=== PATIENT | female | born 1960 | race Caucasian/White ===

== ENCOUNTER 2021-05-13 22:14 | Emergency (ER) | payer MEDICAID, OTHER ==
[~2021-05-13] VITALS: Ht 165 cm; Wt 79.8 kg
--- OUTSIDE RECORDS SUMMARY | 2021-05-13 22:19 | XMS REPORT | Clinical Summary ---
Author Author [facility] Organization [facility] Address Unknown Phone Unavailable Care Team Providers Care Instrumental Music Teacher Name Role Phone Shaggy Durbin PCP Source Comments Some departments are not documenting in the electronic medical record. If you d o not see the information that you expected, contact Release of Information in [facility] Health Information Management department at [phone] for further assistan ce in locating additional records.[facility] Allergies No known active allergies Medications End Date Status Medication Sig Dispensed Refills Start Date Active benazepril (LOTENSIN) 20 Take 40 mg by 0 mg tablet mouth daily. Active celecoxib (CELEBREX) 200 Take 200 mg 0 mg capsule by mouth daily. Active citalopram (CELEXA) 40 mg Take 40 mg by 0 tablet mouth daily. Active alendronate (FOSAMAX) 70 Take 70 mg by 0 mg tablet mouth every 7 days. Take at least 30 minutes before breakfast with plain water. Do not lie down for 30 minutes. Active hydroCHLOROthiazide Take 25 mg by 0 (HYDRODIURIL) 50 mg mouth every tablet morning. Active potassium chloride(+) Take 10 mEq 0 (MICRO-K) 10 mEq capsule by mouth as Needed. Take with a meal and a full glass of water. Active ALPRAZolam (XANAX) 0.5 mg Take 0.5 mg 0 tablet by mouth at bedtime daily. Active acetaminophen (TYLENOL) Take 2 Tabs 0 325 mg tablet by mouth 6 every 4 hours as needed for Pain. Active ondansetron hcl (ZOFRAN) Take 1 Tab by 20 Tab 1 4 mg tablet mouth every 6 6 hours as needed for Nausea or Vomiting. 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 MRI Head (04/04/2016): Minimal bilatera l subarachnoid hemorrhage over the cerebral convexities. Intraparenchymal hemorrhage of brain 04/03/2016 Syncope and collapse 04/02/2016 Surgical History Surgery Date Site/Laterality Comments BACK SURGERY KNEE SURGERY Medical History Medical History Date Comments Migraine HTN (hypertension) Anxiety DJD (degenerative joint disease) Family History Medical History Relation Name Comments Heart Failure Father Cancer Mother Relation Name Status Comments Brother Alive Father Mother (Age 73) Sister Alive Social History Date Tobacco Use Types Packs/Day Years Used Never Smoker Comments Alcohol Use Standard Drinks/Week No 0 (1 standard drink = 0.6 o z pure alcohol) Sex Assigned at Date Recorded Not on file Last Filed Vital Signs Reading Time Taken Comments Vital Sign 128/89 10/05/2016 1:56 PM CDT Blood Pressure 61 10/05/2016 1:56 PM CDT Pulse 36.7 C (98 F) 05/04/2016 1:37 PM SEO CONSULTANT Temperature 14 05/04/2016 1:37 PM SEO CONSULTANT Respiratory Rate 97% 04/05/2016 3:00 PM SEO CONSULTANT Oxygen Saturation - - Inhaled Oxygen Concentration 77.1 kg (170 lb) 10/05/2016 1:56 PM CDT Weight 166.4 cm (5' 5.5") 10/05/2016 1:56 PM CDT Height 27.86 10/05/2016 1:56 PM CDT Body Mass Index Plan of Treatment Health Maintenance Due Date Last Done Comments HIV SCREENING 01/21/1976 DTAP/TDAP VACCINES (1 - 1979 Tdap) HEPATITIS C SCREENING 1979 PHYSICAL (COMPREHENSIVE) 1979 EXAM CERVICAL CANCER SCREENING 1982 BREAST CANCER SCREENING 2001 COLORECTAL CANCER 2011 SCREENING SHINGLES RECOMBINANT 2011 VACCINE (1 of 2) INFLUENZA VACCINE 12/07/2020 Results Not on filefrom Last 3 Months Insurance Type Payer Benefit Subscriber ID Effective Phone Address Plan / Dates [place] [id number] [address] [place] [address] Advance Directives Patient Rail Walker Explanation Type Date Recorded Advance 04/04/2016 11:35 AM Directive/DPOA Date Inactivated Comments Code Status Date Activated 04/05/2016 6:41 PM Full Code 04/03/2016 7:46 PM Provider has discussed Code Status No, more discussi on w/Patient or Family? needed Care Teams Start Date End Date Instrumental Music Teacher Relationship Specialty 05/12/21 Shaggy Durbin DO PCP - General Internal [address] [place] [id number]
[2021-05-13] MEDS ORDERED: KETOROLAC 60 MG/2 ML VIAL IM ONE (23:45)
[2021-05-13] MEDS ORDERED: TELM40TA6 PO (23:47)
[2021-05-13] MEDS ORDERED: MELO10CA3 PO (23:47)
[2021-05-13] MEDS ORDERED: PANT40TA52 PO (23:47)
[2021-05-13] MEDS ORDERED: ALPR0.254 PO (23:47)
[2021-05-13] MEDS ORDERED: BENA-3 PO (23:47)
[2021-05-13] MEDS ORDERED: ALEN70TA80 PO (23:47)
[2021-05-13] MEDS ORDERED: DULO60CA59 PO (23:47)
--- NOTE | 2021-05-14 00:18 | ED Abdominal Pain ---
General Chief Complaint: Abdominal/GI Problems Stated Complaint: ABD SWELLING/PAIN Source of Information: Patient History of Present Illness Date Seen by Provider: May 14, 2021 Time Seen by Provider: 16:50 Initial Comments Patient is a 61-year-old female who presents with abdominal distention and ascites diffuse upper abdominal pain. Symptoms have been ongoing for the past 2 weeks. Patient's been evaluated by her PCP and [facility] emergency department twice. She has had ultrasound CT and labs were performed at outside ED. Patient was diagnosed with ascites with endometrial mass. Pain is cramping, moderate and worse with palpation and movement. No medications or therapies taken prior to ED arrival. She has been referred to [facility] and is awaiting to have appointment scheduled. She reports diffuse upper abdominal pain starting 1 hour prior to arrival. No fever chills, vomiting sweats. No urinary frequency urgency or dysuria. No other acute symptoms or complaints peer Timing/Duration: 4-6 Hours Severity/Quality: Moderate Location: Generalized Abdomen Radiation: Other Activities at Onset: Other Modifying Factors: Improves With Other Associated Symptoms: Other Allergies and Home Medications Allergies Coded Allergies: No Known Drug Allergies (Unverified , 05/13/21) Patient Home Medication List Home Medication List Reviewed: Yes ALPRAZolam (ALPRAZolam) 0.25 Mg Tablet, 1 MG PO DAILY PRN, (Reported) Entered as Reported by: Diana Osullivan on 05/13/212346 Last Action: New Order Alendronate Sodium (Alendronate Sodium) 70 Mg Tablet, 70 MG PO WEEK, (Reported) Entered as Reported by: Diana Osullivan on 05/13/212346 Last Action: New Order Benazepril HCl (Benazepril HCl) 20 Mg Tablet, 20 MG PO DAILY, (Reported) Entered as Reported by: Diana Osullivan on 05/13/212346 Last Action: New Order Duloxetine HCl (Duloxetine HCl) 60 Mg Capsule.dr 60 MG PO DAILY, (Reported) Entered as Reported by: Diana Osullivan on 05/13/212346 Last Action: New Order Meloxicam, Submicronized (Meloxicam) 10 Mg Capsule, 15 MG PO DAILY, (Reported) Entered as Reported by: Daina Osullivan on 05/13/212346 Last Action: New Order Pantoprazole Sodium (Pantoprazole Sodium) 40 Mg Tablet.dr, 40 MG PO DAILY, (Reported) Entered as Reported by: Diana Osullivan on 05/13/212346 Last Action: New Order Telmisartan (Telmisartan) 40 Mg Tablet, 40 MG PO DAILY, (Reported) Entered as Reported by: Diana Osullivan on 05/13/212346 Last Action: New Order Review of Systems Review of Systems Constitutional: see HPI EENTM: See HPI Respiratory: See HPI Cardiovascular: See HPI Gastrointestinal: See HPI Genitourinary: See HPI Musculoskeletal: see HPI Skin: see HPI Psychiatric/Neurological: See HPI Endocrine: See HPI Hematologic/Lymphatic: See HPI All Other Systems Reviewed Negative Unless Noted: Yes Past Slrfkeg-Oovocc-Ftmwhg Hx Patient Social History Tobacco Use?: Yes Use of E-Cig and/or Vaping dev: No Substance use?: No Alcohol Use?: No Pt feels they are or have been: No Physical Exam Vital Signs Vital Signs - First Documented 05/13/21 22:59 Temp 37.3 Pulse 88 Resp 18 B/P (MAP) 159/101 (120) Pulse Ox 98 O2 Delivery Room Air Capillary Refill : Less Than 3 Seconds Height/Weight/BMI Height: '" Weight: lbs. oz. kg; 29.00 BMI Method: General Appearance: no apparent distress HEENT: PERRL/EOMI, normal ENT inspection Neck: non-tender Respiratory: chest non-tender, lungs clear, normal breath sounds Cardiovascular: normal peripheral pulses, regular rate, rhythm Gastrointestinal: soft, distended, other (Mild diffuse upper abdominal tenderness) Extremities: normal range of motion, non-tender Back: normal inspection, no CVA tenderness Neurologic/Psychiatric: alert, oriented x 3 Focused Exam Sepsis Stage: Ruled Out Progress/Results/Core Measures Results/Orders My Orders Orders - DENILSON ZAVALA DO Acute Abd Series (05/13/21 23:08) Ketorolac Injection (Toradol Injection) (05/13/21 23:45) Medications Given in ED Current Medications Medications Dose Ordered Sig/Carolann Route Start Time Stop Time Status Last Admin Dose Admin Ketorolac Tromethamine 60 mg ONCE ONCE IM 05/13/21 23:45 05/13/21 23:46 DC 05/13/21 23:53 60 MG Vital Signs/I&O 05/13/21 22:59 Temp 37.3 Pulse 88 Resp 18 B/P (MAP) 159/101 (120) Pulse Ox 98 O2 Delivery Room Air Blood Pressure Mean: 120 Departure Communication (Admissions) Patient provided copies of recent CT lab, ultrasound and gynecology oncology referral. Patient does not have new features but worsening of pain. I am comfortable treating the patient's pain and having her follow-up with her appointment later this week. She is instructed to return to the emergency department should her symptoms worsen Impression Primary Impression: Abdominal distention Disposition: HOME, SELF-CARE Condition: Stable Departure-Patient Inst. Decision time for Depature: 00:43 Add. Discharge Instructions: You were evaluated in the emergency department for abdominal pain. Your symptoms are consistent with abdominal pain from distention and ascites. Please take Toradol and tramadol as directed and follow-up with your gynecology referral in [place]. Continue taking laxatives for abdominal pain. If you develop new or worsening symptoms, return to the emergency department. All discharge instructions reviewed with patient and/or family. Voiced understanding. Scripts Ketorolac Tromethamine (Ketorolac Tromethamine) 10 Mg Tablet 10 MG PO BID, #10 TAB Prov: DENILSON ZAVALA DO 05/14/21 Tramadol HCl (Tramadol HCl) 50 Mg Tablet 100 MG PO Q6H PRN for PAIN for 3 Days, #12 TAB 0 Refills Prov: DENILSON ZAVALA DO 05/14/21 DENILSON ZAVALA DO May 14, 2021 00:18
[2021-05-14] MEDS ORDERED: KETO10TA PO (00:50)
[2021-05-14] MEDS ORDERED: TRM50T PO (00:50)
[2021-05-14 00:55] VITALS: BP 147/104
== END 2021-05-14 00:55 | disposition home or self-care (01) ==
LOC: ER FS 22:16
DX: R14.0 Abdominal distension (gaseous) (principal); Z72.0 Tobacco use
CPT/HCPCS: 99284